=== PATIENT | male | born 1970 | race Caucasian/White ===

== ENCOUNTER → 2019-07-28 | Outpatient (CLI) | payer SELFPAY ==
--- NOTE | 2019-07-28 10:49 | REP ---
Gallstones clinical: Cough and fever . Comparison: None . Technique: PA and lateral. Findings: The mediastinum and cardiac silhouette are normal. The lung warner are clear and without acute consolidation, effusion, or pneumothorax. The skeletal structures are intact and normal. Impression: 1. No acute cardiopulmonary process. Electronically Signed by Mihir Chairez MD 07/28/2019 10:40 A
== END ==
LOC: M LRY 10:31
PROVIDERS: ATTEND Physician Assistant
DX: R05 Cough (principal); R50.9 Fever, unspecified

== ENCOUNTER → 2019-12-27 | Outpatient (CLI) | payer OTHER, SELFPAY ==
[~2019-12-27] MED LIST: AMLO10TA5 PO; LISI40TA PO; LOSA50TA88 PO
== END ==
LOC: M LABSMTC 09:52
PROVIDERS: ATTEND Anesthesiology
DX: Z01.818 Encounter for other preprocedural examination (principal); Z11.59 Encounter for screening for other viral diseases; Z03.818 Encounter for observation for suspected exposure to other biological agents ruled out
CPT/HCPCS: C9803; U0003

== ENCOUNTER 2019-12-30 07:15 | Day surgery (SDC) | payer OTHER ==
[~2019-12-30] VITALS: Ht 182.9 cm; Wt 117.9 kg
[~2019-12-30 07:15] MED LIST changes: -AMLO10TA5 PO; -LISI40TA PO; -LOSA50TA88 PO; +NS 1,000 ML IV ONE
[2019-12-30] MEDS ORDERED: LOSA50TA88 PO (07:30)
[2019-12-30] MEDS ORDERED: AMLO10TA5 PO (07:30)
[2019-12-30] MEDS ORDERED: LISI40TA PO (07:30)
[2019-12-30] MEDS ORDERED: propofoL 200 MG/20 ML VIAL As Ordered ONE (08:17)
--- NOTE | 2019-12-30 08:26 | ROOR ---
Patient Name: Alphonso Hoang Procedure Date: 12/30/2019 7:59 AM Date of : 1970 Age: 49 Room: [facility] Gender: Male Note Status: Finalized Procedure: Total Colonoscopy to Cecum + Cold Snare Polypectomy + Hemoclip Indications: Screening for colorectal malignant neoplasm Providers: Eric Echols MD Referring MD: Letty [facility], Admin. Requesting Provider: Medicines: Monitored Anesthesia Care Complications: No immediate complications. Procedure: Pre-Anesthesia Assessment: - The heart rate, respiratory rate, oxygen saturations, blood pressure, adequacy of pulmonary ventilation, and response to care were monitored throughout the procedure. The Colonoscope was introduced through the anus and advanced to the cecum, identified by appendiceal orifice and ileocecal valve. The colonoscopy was performed without difficulty. The patient tolerated the procedure well. The quality of the bowel preparation was excellent. Findings: The perianal and digital rectal examinations were normal. Non-bleeding internal hemorrhoids were found during retroflexion. The hemorrhoids were small and Grade I (internal hemorrhoids that do not prolapse). Scattered small-mouthed diverticula were found in the recto-sigmoid colon, sigmoid colon and descending colon. A medium polyp was found in the cecum. The polyp was sessile. The polyp was removed with a cold snare. Resection and retrieval were complete. To prevent bleeding after the polypectomy, one hemostatic clip was successfully placed (MR conditional). There was no bleeding at the end of the procedure. The exam was otherwise without abnormality on direct and retroflexion views. The terminal ileum appeared normal. Impression: - Non-bleeding internal hemorrhoids. - Diverticulosis in the recto-sigmoid colon, in the sigmoid colon and in the descending colon. - One medium polyp in the cecum, removed with a cold snare. Resected and retrieved. Clip (MR conditional) was placed. - The examination was otherwise normal on direct and retroflexion views. - The examined portion of the ileum was normal. - The exam was otherwise normal to the cecum. Recommendation: - Patient has a contact number available for emergencies. The signs and symptoms of potential delayed complications were discussed with the patient. Return to normal activities tomorrow. Written discharge instructions were provided to the patient. - High fiber diet. - Discharge patient to home. - Continue present medications. - Await pathology results. - Telephone GI clinic for pathology results in 1 week. - Repeat colonoscopy for surveillance based on pathology results. - Return to referring physician. - The findings and recommendations were discussed with the patient's family. Eric Echols MD Eric Echols MD 12/30/2019 8:25:19 AM Electronically signed by Eric Echols MD Number of Addenda: 0 Note Initiated On: 12/30/2019 7:59 AM Estimated Blood Loss: Estimated blood loss: none.
[2019-12-30 08:40] VITALS: BP 141/94
== END 2019-12-30 08:52 | disposition home or self-care (01) ==
LOC: M OPP 07:15
PROVIDERS: ATTEND Internal Medicine Gastroenterology
DX: Z12.11 Encounter for screening for malignant neoplasm of colon (principal); D12.0 Benign neoplasm of cecum; K57.30 Diverticulosis of large intestine without perforation or abscess without bleeding; K64.0 First degree hemorrhoids; Z79.899 Other long term (current) drug therapy

== ENCOUNTER 2025-02-24 07:58 | Day surgery (SDC) | payer OTHER ==
[~2025-02-24] VITALS: Ht 182.9 cm; Wt 104.5 kg
[~2025-02-24 07:58] MED LIST changes: +AMLO1TAB25 PO; +ATOR1TAB21 PO; +CHLO25TA PO; +GLIP5TAB17 PO; +LISI40TA10 PO; +LOSA50TA28 PO; +METF10004 PO; +METO1TAB32 PO; -NS 1,000 ML IV ONE
[2025-02-24 09:38] VITALS: TEMP 97.9
[2025-02-24 09:59] VITALS: BP 129/68; O2SAT 96
== END 2025-02-24 10:02 | disposition home or self-care (01) ==
LOC: M OPP 07:58
PROVIDERS: ATTEND Internal Medicine Gastroenterology
DX: Z12.11 Encounter for screening for malignant neoplasm of colon (principal); D12.6 Benign neoplasm of colon, unspecified; K64.0 First degree hemorrhoids; Z86.0100 Personal history of colon polyps, unspecified; Z79.84 Long term (current) use of oral hypoglycemic drugs; Z79.899 Other long term (current) drug therapy